=== PATIENT | female | born 1945 ===

== ENCOUNTER 2022-12-31 08:21 | Outpatient (CLI) | payer OTHER | END 2022-12-31 08:28 | disposition home or self-care (01) | LOC: RAD 08:21 | PROVIDERS: ATTEND Orthopaedic Surgery | DX: M54.59 Other low back pain (principal); M25.552 Pain in left hip; M17.12 Unilateral primary osteoarthritis, left knee ==

== ENCOUNTER 2023-01-01 08:36 | Outpatient (CLI) | payer OTHER | END 2023-01-01 08:37 | disposition home or self-care (01) | LOC: LAB 08:36 | PROVIDERS: ATTEND Orthopaedic Surgery | DX: E88.89 Other specified metabolic disorders (principal); D68.8 Other specified coagulation defects; N39.0 Urinary tract infection, site not specified; A49.02 Methicillin resistant Staphylococcus aureus infection, unspecified site; D64.89 Other specified anemias; M06.4 Inflammatory polyarthropathy; E03.8 Other specified hypothyroidism; M06.8A Other specified rheumatoid arthritis, other specified site; E11.9 Type 2 diabetes mellitus without complications ==

== ENCOUNTER → 2023-01-01 10:26 | Outpatient (CLI) | payer OTHER | END | disposition home or self-care (01) | LOC: TOM 10:26 | PROVIDERS: ATTEND Orthopaedic Surgery | DX: M25.552 Pain in left hip (principal) ==

== ENCOUNTER 2024-01-26 12:00 | Inpatient (IN) | payer OTHER ==
[~2024-01-26] VITALS: Ht 157.5 cm; Wt 68.5 kg
[2024-01-26] MEDS ORDERED: ZESTRIL40 M1 PO (13:05)
[2024-01-26] MEDS ORDERED: SYNTHROID88 MCG PO (13:05)
[2024-01-26] MEDS ORDERED: LIPITOR40 MG PO (13:06)
[2024-01-26] MEDS ORDERED: GLIMEPIRIDE2 MG (13:06)
[2024-01-26] MEDS ORDERED: FAMOTIDINE40 MG PO (13:06)
[2024-01-26] MEDS ORDERED: CLONAZEPAM0.5 MG PO (13:07)
[2024-01-26] MEDS ORDERED: ESOMEPRAZOLE MA40 MG PO (13:07)
[2024-01-26 13:16] VITALS: BP 140/60
[2024-02-02] MEDS ORDERED: ADVIL200 M1 (14:22)
[2024-02-02] MEDS ORDERED: ACTICAL SOFTGE1 EACH (14:22)
[2024-02-02] MEDS ORDERED: GLIMEPIRIDE2 M1 (14:22)
[2024-02-02] MEDS ORDERED: EZETIMIBE10 MG (14:22)
[2024-02-02] MEDS ORDERED: LISINOPRIL40 MG (14:22)
[2024-02-02] MEDS ORDERED: METRONIDAZOLE/SODIUM CHLORIDE 500 MG/100 ML PIGGYBACK IV ONE (15:15)
[2024-02-02] MEDS ORDERED: CEFTRIAXONE SODIUM 2,000 MG VIAL IV ONE (15:15)
[2024-02-02] MEDS ORDERED: DEXTROSE 50 % IN WATER 0.5 G/ML DISP.SYRIN IV PRN ×2 (19:30→22:15)
[2024-02-02] MEDS ORDERED: RINGERS SOLUTION,LACTATED 1,000 ML IV SCH (19:30)
[2024-02-02] MEDS ORDERED: MORPHINE SULFATE 4 MG/ML CARTRIDGE IV PRN (19:30)
[2024-02-02] MEDS ORDERED: ONDANSETRON HCL 2 MG/ML VIAL IV PRN (19:30)
[2024-02-02] MEDS ORDERED: MORPHINE SULFATE 4 MG/ML VIAL IV ONE ×2 (20:05→20:35)
[2024-02-02] MEDS ORDERED: SUGAMMADEX SODIUM 200 MG/2 ML VIAL IV ONE (20:45)
[2024-02-02] MEDS ORDERED: FAMOTIDINE/PF 20 MG/2 ML VIAL IV PUSH SCH (21:00)
[2024-02-02 21:57] LABS: HEMATOCRIT 37.8 % (36.0-45.00); HEMOGLOBIN 12.5 g/dL (12.0-15.00); MEAN CELL VOLUME 91.8 fL (80.00-100.00); MEAN CORPUSCULAR HEMOGLOBIN 30.4 pg (27.00-32.0); MEAN CORPUSCULAR HGB CONC 33.1 g/dl (32.0-36.0); PLATELET COUNT 304 K/uL (150-450); RED BLOOD COUNT 4.12 M/uL (4.00-6.00); RED CELL DISTRIBUTION WIDTH 12.9 % (11.5-14.5)
[2024-02-02 22:13] LABS: ALBUMIN 2.9 gm/dL (3.4-5.0); CALCIUM 9.1 mg/dL (8.5-10.1); CREATININE SERUM 0.94 mg/dL (0.55-1.02); GFR 57.74; MAGNESIUM 1.6 mg/dL (1.8-2.4); PHOSPHOROUS 3.9 mg/dL (2.5-4.9); POTASSIUM 4.33 mEq/L (3.5-5.1)
[2024-02-02] MEDS ORDERED: INSULIN LISPRO 1,000 UNIT/10 ML UNITS SUBCUTANEO PRN (22:15)
[2024-02-03] VITALS (7 sets, daily range): BP systolic 106–132; BP diastolic 57–66; O2SAT 86–98
[2024-02-03] MEDS ORDERED: LEVOTHYROXINE SODIUM 88 MCG TABLET PO SCH (06:00)
[2024-02-03 07:28] LABS: HEMATOCRIT 36.7 % (36.0-45.00); MEAN CELL VOLUME 92.5 fL (80.00-100.00); MEAN CORPUSCULAR HEMOGLOBIN 30.4 pg (27.00-32.0); MEAN CORPUSCULAR HGB CONC 32.8 g/dl (32.0-36.0); PLATELET COUNT 250 K/uL (150-450); RED BLOOD COUNT 3.96 M/uL (4.00-6.00)
[2024-02-03 08:06] LABS: ALBUMIN 2.6 gm/dL (3.4-5.0); CALCIUM 8.9 mg/dL (8.5-10.1); CREATININE SERUM 0.93 mg/dL (0.55-1.02); GFR 58.46; MAGNESIUM 1.5 mg/dL (1.8-2.4); PHOSPHOROUS 3.7 mg/dL (2.5-4.9); POTASSIUM 4.75 mEq/L (3.5-5.1)
[2024-02-03] MEDS ORDERED: HYOSCYAMINE SULFATE 0.125 MG TAB.SUBL SL SCH (09:00)
[2024-02-03] MEDS ORDERED: LISINOPRIL 40 MG TABLET PO SCH (09:00)
[2024-02-03] MEDS ORDERED: ENOXAPARIN SODIUM 40 MG/0.4 ML SYRINGE SUBCUTANEO SCH (17:00)
[2024-02-04] VITALS: BP 128/813; O2SAT 97
[2024-02-04] MEDS ORDERED: ENOXAPARIN SODIUM 40 MG/0.4 ML SYRINGE SUBCUTANEO SCH (09:00)
[2024-02-04 09:20] VITALS: O2SAT 96
[2024-02-04 10:22] VITALS: BP 170/76; O2SAT 97
[2024-02-04 12:39] VITALS: O2SAT 95
[2024-02-04 16:18] VITALS: BP 135/63; O2SAT 97
[2024-02-04] MEDS ORDERED: MEPERIDINE HCL/PF 25 MG/ML VIAL IV PRN ×2 (16:45→17:00)
[2024-02-04] MEDS ORDERED: ACETAMINOPHEN 500 MG GEL..CAP PO SCH (17:00)
[2024-02-04] MEDS ORDERED: AA 4.25%/CAL/LYTES/DEXT 5% 1,000 ML PERIFERAL SCH (17:00)
[2024-02-04] MEDS ORDERED: BUDESONIDE 0.5 MG/2 ML AMPUL.NEB IH SCH (21:00)
[2024-02-05 00:23] VITALS: BP 108/63
[2024-02-05 08:30] VITALS: BP 129/87; O2SAT 97
[2024-02-05] MEDS ORDERED: PHENOL 177 ML BOTTLE MM SCH (10:36)
[2024-02-05 17:00] VITALS: BP 178/79; O2SAT 98
[2024-02-05 19:30] VITALS: BP 120/77
[2024-02-05 21:51] VITALS: O2SAT 99
[2024-02-06 00:42] VITALS: BP 140/63; O2SAT 95
[2024-02-06 05:34] VITALS: O2SAT 92
[2024-02-06 08:00] VITALS: BP 125/60; O2SAT 97
[2024-02-06 08:25] LABS: HEMATOCRIT 30.4 % (36.0-45.00); HEMOGLOBIN 10.1 g/dL (12.0-15.00); MEAN CELL VOLUME 92.6 fL (80.00-100.00); MEAN CORPUSCULAR HEMOGLOBIN 30.8 pg (27.00-32.0); MEAN CORPUSCULAR HGB CONC 33.3 g/dl (32.0-36.0); PLATELET COUNT 192 K/uL (150-450); RED BLOOD COUNT 3.29 M/uL (4.00-6.00); RED CELL DISTRIBUTION WIDTH 12.7 % (11.5-14.5)
[2024-02-06 08:47] LABS: ALBUMIN 2.1 gm/dL (3.4-5.0); BILIRUBIN TOTAL 0.81 mg/dL (0.3-1.2); CALCIUM 8.9 mg/dL (8.5-10.1); CREATININE SERUM 0.55 mg/dL (0.55-1.02); GFR 107.18; POTASSIUM 3.79 mEq/L (3.5-5.1); TOTAL PROTEIN 5.1 gm/dL (6.4-8.2)
[2024-02-06] MEDS ORDERED: LEVALBUTEROL HCL 0.63 MG/3 ML SOLUTION IH SCH (10:20)
[2024-02-06] MEDS ORDERED: ENALAPRILAT DIHYDRATE 1.25 MG/ML VIAL IV SCH (12:00)
[2024-02-06] MEDS ORDERED: LEVOTHYROXINE SODIUM 100 MCG/VIAL VIAL IV SCH (12:00)
[2024-02-06 14:05] LABS: ABG PH 7.505 (7.35-7.45); ABG PO2 69.6 mmHg (80-100); ABG pCO2 38.4 mmHg (35-45); BASE EXCESS 6.2 mmol/l; BICARBONATE 29.6 mmol/l (23-25); SaO2 95.6 %; Tco2 30.8 mmol/l; allen test SATISFACTORY; puncture site RADIAL LEFT
[2024-02-06 14:06] LABS: o2 21 %
[2024-02-06 16:28] VITALS: BP 179/81; O2SAT 98
[2024-02-06] MEDS ORDERED: hydrALAZINE HCL 20 MG VIAL IV PRN (17:00)
[2024-02-06] MEDS ORDERED: SOD FERRIC GLUC COMPLX/SUCROSE 62.5 MG in 0.9 % SODIUM CHLORIDE 50 ML IV SCH (17:10)
[2024-02-06 18:18] VITALS: BP 163/74
[2024-02-06] MEDS ORDERED: DEXTROSE 50 % IN WATER 0.5 G/ML DISP.SYRIN IV PRN (22:00)
[2024-02-06] MEDS ORDERED: INSULIN LISPRO 1,000 UNIT/10 ML UNITS SUBCUTANEO PRN (22:00)
[2024-02-06] MEDS ORDERED: MEPERIDINE HCL/PF 25 MG/ML VIAL IV PRN (22:15)
[2024-02-07 00:05] VITALS: BP 123/59; O2SAT 95
[2024-02-07 00:54] VITALS: O2SAT 97
[2024-02-07 07:35] VITALS: BP 170/77; O2SAT 98
[2024-02-07 07:43] LABS: HEMATOCRIT 31.1 % (36.0-45.00); HEMOGLOBIN 10.5 g/dL (12.0-15.00); MEAN CELL VOLUME 92.8 fL (80.00-100.00); MEAN CORPUSCULAR HEMOGLOBIN 31.3 pg (27.00-32.0); MEAN CORPUSCULAR HGB CONC 33.7 g/dl (32.0-36.0); PLATELET COUNT 221 K/uL (150-450); RED BLOOD COUNT 3.35 M/uL (4.00-6.00)
[2024-02-07 08:18] LABS: CALCIUM 8.8 mg/dL (8.5-10.1); CREATININE SERUM 0.58 mg/dL (0.55-1.02); GFR 100.8; MAGNESIUM 2.1 mg/dL (1.8-2.4); PHOSPHOROUS 3.4 mg/dL (2.5-4.9); POTASSIUM 3.92 mEq/L (3.5-5.1); T4 TOTAL 8.44 UG/DL (4.8-13.9); TSH 3.13 uIU/mL (0.358-3.74)
[2024-02-07 16:00] VITALS: BP 105/69; O2SAT 98
[2024-02-07 21:21] VITALS: O2SAT 95
[2024-02-08] VITALS (8 sets, daily range): BP systolic 113–151; BP diastolic 69–83; O2SAT 79–100
[2024-02-08 07:02] LABS: HEMATOCRIT 34.3 % (36.0-45.00); HEMOGLOBIN 11.4 g/dL (12.0-15.00); MEAN CELL VOLUME 92.2 fL (80.00-100.00); MEAN CORPUSCULAR HEMOGLOBIN 30.7 pg (27.00-32.0); MEAN CORPUSCULAR HGB CONC 33.3 g/dl (32.0-36.0); PLATELET COUNT 238 K/uL (150-450); RED BLOOD COUNT 3.72 M/uL (4.00-6.00); RED CELL DISTRIBUTION WIDTH 13.1 % (11.5-14.5)
[2024-02-08 07:39] LABS: ALBUMIN 2.2 gm/dL (3.4-5.0); BILIRUBIN TOTAL 0.64 mg/dL (0.3-1.2); BILIRUBIN,CONJUGATED 0.18 mg/dL (0.0-0.2); BILIRUBIN,UNCONJUGATED 0.46 mg/dL (0.0-0.6); CALCIUM 9.3 mg/dL (8.5-10.1); CREATININE SERUM 0.69 mg/dL (0.55-1.02); GFR 82.5; GLOBULINA 3.6 G/DL (2.4-3.5); MAGNESIUM 2.3 mg/dL (1.8-2.4); POTASSIUM 4.35 mEq/L (3.5-5.1); TOTAL PROTEIN 5.8 gm/dL (6.4-8.2)
[2024-02-08 09:24] LABS: UREA CLEARANCE 31.8 ML/MIN
[2024-02-08] MEDS ORDERED: LIDOCAINE 5% 1 PATCH ADH. TOP NR (13:00)
[2024-02-08 17:10] LABS: PH,URINE 6.5 (5.0-8.0); URINE APPEARANCE Clear; URINE BILIRRUBIN Negative (NEGATIVE); URINE BLOOD Negative; URINE COLOR Dark Yellow; URINE KETONE 15 (NEGATIVE); URINE LEUKOCYTE Trace; URINE NITRATE Negative; URINE PROTEIN 30 (NEGATIVE)
[2024-02-08 17:13] LABS: URINE CAST 1.52 uL (0.0-1.40); URINE EPITHELIAL CELLS 51.7 uL (0.0-38.8); URINE RBC 9.6 uL (0.0-20.8); URINE WBC 13.1 uL (0.0-23.2)
[2024-02-08 17:27] LABS: URINE GLUCOSE 100 MG/DL (NEGATIVE)
[2024-02-08] MEDS ORDERED: INSULIN NPH HUMAN ISOPHANE 1,000 UNITS/10 ML UNITS SUBCUTANEO STA (21:11)
[2024-02-09] VITALS (8 sets, daily range): BP systolic 122–148; BP diastolic 60–68; O2SAT 90–98
[2024-02-09] MEDS ORDERED: LIDOCAINE 5% 1 PATCH ADH. TOP SCH (09:00)
[2024-02-09] MEDS ORDERED: INSULIN NPH HUMAN ISOPHANE 1,000 UNITS/10 ML UNITS SUBCUTANEO SCH (09:00)
[2024-02-10] VITALS (8 sets, daily range): BP systolic 98–135; BP diastolic 61–65; O2SAT 90–99
[2024-02-11] VITALS (10 sets, daily range): BP systolic 93–158; BP diastolic 54–86; O2SAT 90–96
[2024-02-11 11:33] LABS: ALBUMIN 2.4 gm/dL (3.4-5.0); BILIRUBIN TOTAL 0.54 mg/dL (0.3-1.2); CALCIUM 9.1 mg/dL (8.5-10.1); CREATININE SERUM 0.65 mg/dL (0.55-1.02); GFR 88.38; GLOBULINA 3.3 G/DL (2.4-3.5); POTASSIUM 4.54 mEq/L (3.5-5.1); TOTAL PROTEIN 5.7 gm/dL (6.4-8.2)
[2024-02-12 02:32] VITALS: BP 127/89; O2SAT 95
[2024-02-12 05:23] VITALS: O2SAT 95
[2024-02-12] MEDS ORDERED: LEVOTHYROXINE SODIUM 88 MCG TABLET PO SCH (06:00)
[2024-02-12 10:05] VITALS: BP 125/64; O2SAT 98
[2024-02-12 10:25] VITALS: O2SAT 97
== END 2024-02-12 13:38 | disposition home or self-care (01) | DRG 330 ==
LOC: SURH 01-27 12:00 → O/R 02-02 08:13 → SURH 02-02 20:10
PROVIDERS: Internal Medicine; Internal Medicine Geriatric Medicine; ADMIT Colon & Rectal Surgery; ATTEND Colon & Rectal Surgery
PROC: 0DH68UZ Insertion of Feeding Device into Stomach, Via Natural or Artificial Opening Endoscopic (ICD-10-PCS; 2024-02-02)
PROC: 0DQ84ZZ Repair Small Intestine, Percutaneous Endoscopic Approach (ICD-10-PCS; principal; 2024-02-03)
PROC: 0DT84ZZ Resection of Small Intestine, Percutaneous Endoscopic Approach (ICD-10-PCS; 2024-02-03)
PROC: 4A12X4Z Monitoring of Cardiac Electrical Activity, External Approach (ICD-10-PCS; 2024-02-03)
PROC: 02HV33Z Insertion of Infusion Device into Superior Vena Cava, Percutaneous Approach (ICD-10-PCS; 2024-02-04)
PROC: 3E0F7GC Introduction of Other Therapeutic Substance into Respiratory Tract, Via Natural or Artificial Opening (ICD-10-PCS; 2024-02-05)
DX: K56.51 Intestinal adhesions [bands], with partial obstruction (principal); K57.32 Diverticulitis of large intestine without perforation or abscess without bleeding; K91.71 Accidental puncture and laceration of a digestive system organ or structure during a digestive system procedure; E78.00 Pure hypercholesterolemia, unspecified; E11.9 Type 2 diabetes mellitus without complications; Z79.4 Long term (current) use of insulin; I11.9 Hypertensive heart disease without heart failure; R09.02 Hypoxemia; E03.8 Other specified hypothyroidism